=== PATIENT | female | born 1975 | race Caucasian/White ===

== ENCOUNTER 2017-01-06 10:38 | Emergency (ER) | payer BC ==
[~2017-01-06] VITALS: Ht 160 cm; Wt 93.9 kg
[2017-01-06] MEDS ORDERED: TRAMADOL HCL50 MG PO (12:36)
[2017-01-06] MEDS ORDERED: FLEXERIL10 MG PO (12:36)
[2017-01-06] MEDS ORDERED: NAPROSYN500 MG PO (12:36)
[2017-01-06 12:43] VITALS: BP 121/64
== END 2017-01-06 12:44 | disposition home or self-care (01) ==
LOC: EME 10:38
DX: M46.1 Sacroiliitis, not elsewhere classified (principal); R20.0 Anesthesia of skin; M54.5 Low back pain
CPT/HCPCS: 72202; 99281; 99284

== ENCOUNTER 2018-04-02 05:35 | Day surgery (SDC) | payer BC ==
[~2018-04-02] VITALS: Ht 160 cm; Wt 49.9 kg
[~2018-04-02 05:35] MED LIST: FLEXERIL10 MG PO; NAPROSYN500 MG PO; TRAMADOL HCL50 MG PO
[2018-04-02 06:06] VITALS: BP 117/66
[2018-04-02] MEDS ORDERED: MOTRIN800 MG PO (07:33)
[2018-04-02] MEDS ORDERED: PERCOCET 5/31 TABLET PO (07:33)
[2018-04-02 10:53] VITALS: BP 115/71
[2018-04-02 11:52] VITALS: BP 109/65
[2018-04-02 13:06] VITALS: BP 130/74
== END 2018-04-02 13:19 | disposition home or self-care (01) ==
LOC: SDC 05:35
PROC: 0UT94ZZ Resection of Uterus, Percutaneous Endoscopic Approach (ICD-10-PCS; principal; 2018-04-02)
PROC: 0UT74ZZ Resection of Bilateral Fallopian Tubes, Percutaneous Endoscopic Approach (ICD-10-PCS; principal; 2018-04-02)
DX: N84.0 Polyp of corpus uteri (principal); D25.9 Leiomyoma of uterus, unspecified; N92.0 Excessive and frequent menstruation with regular cycle; K21.9 Gastro-esophageal reflux disease without esophagitis
CPT/HCPCS: 88304; 88307; J0690; J1100; J1885; J2405; J2710; J2795; J3010; J3475; J7643; Q0175; S0020